=== PATIENT | female | born 1950 | race Caucasian/White ===

== ENCOUNTER 2022-06-01 00:27 | Inpatient (IN) | payer MEDICARE ==
[~2022-06-01] VITALS: Ht 152.4 cm; Wt 47.8 kg
[2022-06-01] MEDS ORDERED: normal saline 500ml IV soln 500 ML IV ONE (03:50)
--- NOTE | 2022-06-01 05:14 | NUR ---
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 aware.
[2022-06-01 05:20] LABS: ALANINE AMINOTRANSFERASE 12 U/L (12-78); ALBUMIN/GLOBULIN RATIO 0.8 (1.1-1.5); ALKALINE PHOSPHATASE 109 IU/L (46-116); ANION GAP 7 (8-16); ASPARTATE AMINO TRANSFERASE 27 U/L (10-37); BILIRUBIN,TOTAL 0.5 MG/DL (0.1-1.0); BLOOD UREA NITROGEN 22 MG/DL (7-18); BUN/CREATININE RATIO 16.9 (6.6-38.0); CHLORIDE 103 MMOL/L (99-107); GLUCOSE 126 MG/DL (70-104); POTASSIUM 3.9 MMOL/L (3.5-5.1); SODIUM 145 MMOL/L (135-145); TOTAL CARBON DIOXIDE 34.7 MMOL/L (24-32); TOTAL PROTEIN 6.9 G/DL (6.4-8.2); eGFR 40 ML/MIN
[2022-06-01 05:21] LABS: BASOPHILS % (AUTO) 0.5 % (0-1); EOSINOPHILS # (AUTO) 0.1 X10'3 (0-0.9); EOSINOPHILS % (AUTO) 4.4 % (0-6); HEMATOCRIT 38.4 % (35.0-45.0); LYMPHOCYTES # (AUTO) 0.6 X10'3 (1.1-4.8); LYMPHOCYTES % (AUTO) 19.2 % (21-51); MEAN CORPUSCULAR HEMOGLOBIN 33.5 PG (27.0-31.0); MEAN CORPUSCULAR HGB CONC 33.9 g/dL (33.0-36.5); MEAN CORPUSCULAR VOLUME 98.6 FL (78-98); MEAN PLATELET VOLUME 9.4 FL (7.4-10.4); MONOCYTES # (AUTO) 0.4 X10'3 (0-0.9); MONOCYTES % (AUTO) 11.8 % (2-12); NEUTROPHILS % (AUTO) 64.1 % (42-75); PLATELET COUNT 121 X10'3 (140-440); RED BLOOD COUNT 3.89 X10'6 (4.20-5.60); RED CELL DISTRIBUTION WIDTH 18.4 % (11.5-14.5); WHITE BLOOD COUNT 3.1 X10'3 (4.5-11.0)
[2022-06-01 05:28] LABS: MAGNESIUM 2.3 MG/DL (1.5-2.4)
[2022-06-01] MEDS ORDERED: potassium Cl 20 mEq SR tablet PEG PRN (08:05)
[2022-06-01] MEDS ORDERED: morphine 2 MG/ML inj. syringe IV PRN ×2 (08:05)
[2022-06-01] MEDS ORDERED: ondansetron 4mg rapidly disintigrating tab PEG PRN (08:05)
[2022-06-01] MEDS ORDERED: acetaminophen 325mg tablet PEG PRN ×2 (08:05)
[2022-06-01] MEDS ORDERED: albuterol 2.5 MG/3 ML nebule NEB PRN (08:05)
[2022-06-01] MEDS ORDERED: magnesium Cl slow-release 64mg tablet PO PRN (08:05)
[2022-06-01] MEDS ORDERED: potassium Cl 40MEQ/1/2NS 520ml 520 ML IV PRN (08:05)
[2022-06-01] MEDS ORDERED: mag hydrox/Alum hydrox/simeth 30ml oral suspension PEG PRN (08:05)
[2022-06-01] MEDS ORDERED: magnesium hydroxide 30ml (MOM) UD suspension PEG PRN (08:05)
[2022-06-01] MEDS ORDERED: acetaminophen 650mg rectal suppository RC PRN (08:05)
[2022-06-01] MEDS ORDERED: ondansetron/PF 4mg/2ml inj IV PRN (08:05)
[2022-06-01] MEDS ORDERED: magnesium 4gm in 100ml NS 100 ML IV PRN (08:05)
[2022-06-01 08:14] LABS: D-DIMER 4.73 MG/L FEU (0-0.50)
[2022-06-01 08:38] LABS: PHOSPHORUS 4.6 MG/DL (2.3-4.5); POTASSIUM 3.8 MMOL/L (3.5-5.1)
[2022-06-01 08:41] LABS: ABG BASE EXCESS 4.4 mmol/L (-2.0-2.0); ABG HCO3 29.2 mmol/L (22.0-26.0); ABG PCO2 (T) 43.9 mmHg (32.0-45.0); ABG PO2 (T) 85.1 mmHg (75.0-100.0); ALLEN'S TEST POSITIVE; FLOW 4 L/min
[2022-06-01] MEDS: normal saline 1000ml 1,000 ML IV SCH (09:01)
[2022-06-01] MEDS ORDERED: aspirin 81mg tab.chew PO ONE (14:55)
[2022-06-01] MEDS ORDERED: ipratropium/albuterol 3ml nebule NEB PRN (14:55)
[2022-06-01] MEDS ORDERED: CefTRIAXone/D5W-Rocephin 1gm 50 ML IV ONE (15:05)
[2022-06-01] MEDS: ipratropium/albuterol 3ml nebule NEB SCH ×3 (15:45→23:04)
[2022-06-01] MEDS: clopidogrel 75mg tablet PO SCH (16:09)
[2022-06-01] MEDS ORDERED: METO-384 PO (16:29)
[2022-06-01] MEDS ORDERED: LEVA15HF4 INH (16:29)
[2022-06-01] MEDS ORDERED: LORA-269 PO (16:29)
[2022-06-01] MEDS ORDERED: OLAN2.5T3 PO (16:29)
[2022-06-01] MEDS ORDERED: SERT-153 PO (16:29)
[2022-06-01] MEDS ORDERED: OXYC5TAB2 PO (16:29)
[2022-06-01] MEDS ORDERED: PANT-47 PO (16:29)
[2022-06-01] MEDS ORDERED: ASPI-1265 PO (16:29)
[2022-06-01] MEDS ORDERED: FURO-149 PO (16:29)
[2022-06-01] MEDS ORDERED: ATOR80TA13 PO (16:29)
[2022-06-01] MEDS ORDERED: CLOP-32 PO (16:29)
[2022-06-01] MEDS ORDERED: GABA800T PO (16:29)
[2022-06-01] MEDS ORDERED: OLAN5TAB75 PO (18:07)
[2022-06-01] MEDS ORDERED: GABA300C PO (18:07)
[2022-06-01] MEDS ORDERED: METO-395 PO (18:07)
[2022-06-01] MEDS ORDERED: LISI10TA27 PO (18:07)
--- NOTE | 2022-06-01 19:23 | NUR ---
CONACT: GRAZYNA SON
[2022-06-01] MEDS: docusate sod 100mg capsule PO SCH (22:22)
[2022-06-01] MEDS: K and/or MAG REPLACEMENT MC SCH (22:23)
[2022-06-01] MEDS: heparin, porcine 5000 units/ml vial SQ SCH (22:45)
[2022-06-02] MEDS ORDERED: oxyCODONE IR 5mg (immed. release) tablet PO PRN (00:25)
[2022-06-02] MEDS ORDERED: LORazepam 1 MG tablet PO PRN (00:25)
[2022-06-02] MEDS: normal saline 1000ml 1,000 ML IV SCH ×2 (01:26→17:41)
[2022-06-02] MEDS: ipratropium/albuterol 3ml nebule NEB SCH ×6 (03:59→23:00)
[2022-06-02 04:05] LABS: BASOPHILS % (AUTO) 0.4 % (0-1); EOSINOPHILS # (AUTO) 0.1 X10'3 (0-0.9); EOSINOPHILS % (AUTO) 3.5 % (0-6); HEMATOCRIT 26.7 % (35.0-45.0); LYMPHOCYTES # (AUTO) 0.5 X10'3 (1.1-4.8); LYMPHOCYTES % (AUTO) 16.5 % (21-51); MEAN CORPUSCULAR HEMOGLOBIN 33.7 PG (27.0-31.0); MEAN CORPUSCULAR HGB CONC 33.5 g/dL (33.0-36.5); MEAN CORPUSCULAR VOLUME 100.4 FL (78-98); MEAN PLATELET VOLUME 9.7 FL (7.4-10.4); MONOCYTES # (AUTO) 0.4 X10'3 (0-0.9); MONOCYTES % (AUTO) 12.5 % (2-12); NEUTROPHILS # (AUTO) 2.1 X10'3 (1.8-7.7); NEUTROPHILS % (AUTO) 67.1 % (42-75); PLATELET COUNT 132 X10'3 (140-440); RED BLOOD COUNT 2.66 X10'6 (4.20-5.60); WHITE BLOOD COUNT 3.2 X10'3 (4.5-11.0)
[2022-06-02 04:15] LABS: ALANINE AMINOTRANSFERASE 12 U/L (12-78); ALBUMIN 2.6 G/DL (3.4-5.0); ALBUMIN/GLOBULIN RATIO 0.7 (1.1-1.5); ALKALINE PHOSPHATASE 104 IU/L (46-116); ANION GAP 9 (8-16); ASPARTATE AMINO TRANSFERASE 35 U/L (10-37); BILIRUBIN,TOTAL 0.3 MG/DL (0.1-1.0); BLOOD UREA NITROGEN 19 MG/DL (7-18); BUN/CREATININE RATIO 17.9 (6.6-38.0); CALCIUM 8.5 MG/DL (8.5-10.1); CHLORIDE 106 MMOL/L (99-107); CREATININE 1.06 MG/DL (0.40-0.90); GLUCOSE 113 MG/DL (70-104); PHOSPHORUS 4.5 MG/DL (2.3-4.5); POTASSIUM 3.4 MMOL/L (3.5-5.1); SODIUM 144 MMOL/L (135-145); TOTAL CARBON DIOXIDE 29.4 MMOL/L (24-32); TOTAL PROTEIN 6.1 G/DL (6.4-8.2); eGFR 51 ML/MIN
--- NOTE | 2022-06-02 07:13 | NUR ---
Patient in room ED 9. I have received report from Mina in the ED and had the opportunity to ask questions and assume patient care.
[2022-06-02 08:00] VITALS: BP 114/59
[2022-06-02] MEDS ORDERED: aspirin 81mg tab.chew PO SCH (08:00)
[2022-06-02] MEDS: docusate sod 100mg capsule PO SCH (08:00)
[2022-06-02] MEDS: heparin, porcine 5000 units/ml vial SQ SCH ×2 (08:00→20:00)
[2022-06-02] MEDS ORDERED: gabapentin 300mg capsule PO SCH ×2 (08:00→21:00)
[2022-06-02] MEDS ORDERED: clopidogrel 75mg tablet PO SCH (08:00)
[2022-06-02] MEDS: K and/or MAG REPLACEMENT MC SCH ×2 (08:00→19:18)
[2022-06-02] MEDS: aspirin 81mg tab.chew PO SCH (08:53)
[2022-06-02] MEDS: atorvastatin 20mg tablet PO SCH (08:54)
[2022-06-02] MEDS: clopidogrel 75mg tablet PO SCH (08:56)
[2022-06-02] MEDS: metoprolol succinate 25mg (24-HOUR) SR. Tablet PO SCH (08:56)
[2022-06-02] MEDS: pantoprazole 40mg Tablet.DR PO SCH (08:56)
[2022-06-02] MEDS: lisinopril 10 MG tablet PO SCH ×2 (08:57→20:29)
[2022-06-02] MEDS: sertraline 50mg tablet PO SCH (08:57)
[2022-06-02] MEDS: potassium Cl 20 mEq SR tablet PEG PRN ×3 (08:58→20:29)
--- NOTE | 2022-06-02 09:46 | NUR ---
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 Discussed w/ pt and her at bedside. Pt states she takes 1-2 bottles of [employer] Standard 1.4 formula per day in addition to any food she eats. 1 11oz bottle contains 455kcals and 20g protein. FOOD GENERAL MANAGER saw pt today and recommended Regular diet. Pt has her own TF at bedside and says she has plenty to bring from home. Recommend continue current home TF regimen and regular diet. Will continue to monitor. Recommendations: 1. Continue Regular diet per FOOD GENERAL MANAGER recs 2. Continue Home TF regimen: Remicalm 1.4 1-2 11oz bottles per day 3. Bowel care per rx 4. Scaled wts Addendum: 06/02/22 at [address] Amended: Links added.
--- NOTE | 2022-06-02 13:21 | NUR ---
PAGER ID: [phone] MESSAGE: RE: Adebayo in [id number], pt states she takes gabapentin 300 mg TID, ordered is 900 mg TID, please advise Yuliana
[2022-06-02 14:00] VITALS: BP 110/61
[2022-06-02] MEDS: CefTRIAXone/D5W-Rocephin 1gm 50 ML IV SCH (15:21)
[2022-06-02] MEDS ORDERED: azithromycin 250mg tablet PO ONE (16:50)
[2022-06-02 18:00] VITALS: BP 103/48
--- NOTE | 2022-06-02 18:18 | NUR ---
Problems reprioritized. Patient report given, questions answered & plan of care reviewed with Cheryl Ortega
[2022-06-02] MEDS: gabapentin 300mg capsule PO SCH (20:29)
[2022-06-02] MEDS: OLANZAPINE 5 MG TABLET PO SCH (20:30)
[2022-06-02 22:00] VITALS: BP 87/39
[2022-06-03 02:00] VITALS: BP 125/65
[2022-06-03] MEDS: ipratropium/albuterol 3ml nebule NEB SCH ×6 (03:00→23:00)
[2022-06-03 06:30] VITALS: BP 133/71
--- NOTE | 2022-06-03 07:06 | NUR ---
Patient in room PCU 3024. I have received report from Cheryl Padilla and had the opportunity to ask questions and assume patient care.
[2022-06-03 07:36] LABS: HEMATOCRIT 28.3 % (35.0-45.0); HEMOGLOBIN 9.4 g/dl (12.0-16.0); MEAN CORPUSCULAR HEMOGLOBIN 33.2 PG (27.0-31.0); MEAN CORPUSCULAR HGB CONC 33.3 g/dL (33.0-36.5); MEAN CORPUSCULAR VOLUME 99.8 FL (78-98); RED BLOOD COUNT 2.84 X10'6 (4.20-5.60); RED CELL DISTRIBUTION WIDTH 18.6 % (11.5-14.5); WHITE BLOOD COUNT 3.8 X10'3 (4.5-11.0)
[2022-06-03 07:37] LABS: EOSINOPHILS # (AUTO) 0.2 X10'3 (0-0.9); EOSINOPHILS % (AUTO) 5.8 % (0-6); LYMPHOCYTES % (AUTO) 11.8 % (21-51); MEAN PLATELET VOLUME 9.6 FL (7.4-10.4); MONOCYTES # (AUTO) 0.4 X10'3 (0-0.9); MONOCYTES % (AUTO) 9.4 % (2-12); NEUTROPHILS # (AUTO) 2.7 X10'3 (1.8-7.7); NEUTROPHILS % (AUTO) 72.6 % (42-75); PLATELET COUNT 135 X10'3 (140-440)
[2022-06-03 07:39] LABS: ANION GAP 6 (8-16); BLOOD UREA NITROGEN 14 MG/DL (7-18); BUN/CREATININE RATIO 15.2 (6.6-38.0); CALCIUM 8.5 MG/DL (8.5-10.1); CHLORIDE 110 MMOL/L (99-107); CREATININE 0.92 MG/DL (0.40-0.90); GLUCOSE 91 MG/DL (70-104); POTASSIUM 4.6 MMOL/L (3.5-5.1); SODIUM 145 MMOL/L (135-145); TOTAL CARBON DIOXIDE 28.6 MMOL/L (24-32); eGFR 60 ML/MIN
[2022-06-03 07:40] LABS: ALANINE AMINOTRANSFERASE 19 U/L (12-78); ALBUMIN 2.7 G/DL (3.4-5.0); ALBUMIN/GLOBULIN RATIO 0.8 (1.1-1.5); ALKALINE PHOSPHATASE 99 IU/L (46-116); ASPARTATE AMINO TRANSFERASE 45 U/L (10-37); BILIRUBIN,TOTAL 0.3 MG/DL (0.1-1.0); PHOSPHORUS 3.8 MG/DL (2.3-4.5); TOTAL PROTEIN 6.2 G/DL (6.4-8.2)
[2022-06-03] MEDS: K and/or MAG REPLACEMENT MC SCH ×2 (08:00→20:00)
[2022-06-03] MEDS: atorvastatin 20mg tablet PO SCH (08:00)
[2022-06-03] MEDS: heparin, porcine 5000 units/ml vial SQ SCH ×2 (08:00→19:06)
[2022-06-03] MEDS: gabapentin 300mg capsule PO SCH ×2 (08:57→19:08)
[2022-06-03] MEDS: pantoprazole 40mg Tablet.DR PO SCH (08:57)
[2022-06-03] MEDS: metoprolol succinate 25mg (24-HOUR) SR. Tablet PO SCH (08:57)
[2022-06-03] MEDS: clopidogrel 75mg tablet PO SCH (08:57)
[2022-06-03] MEDS: azithromycin 250mg tablet PO SCH (08:58)
[2022-06-03] MEDS: aspirin 81mg tab.chew PO SCH (08:58)
[2022-06-03] MEDS: lisinopril 10 MG tablet PO SCH ×2 (08:58→19:08)
[2022-06-03] MEDS: sertraline 50mg tablet PO SCH (08:58)
[2022-06-03 10:00] VITALS: BP 126/60
[2022-06-03] MEDS: normal saline 1000ml 1,000 ML IV SCH (10:05)
[2022-06-03 10:41] LABS: BASOPHILS % (AUTO) 0.5 % (0-1)
[2022-06-03] MEDS: CefTRIAXone/D5W-Rocephin 1gm 50 ML IV SCH (15:34)
--- NOTE | 2022-06-03 18:30 | NUR ---
Problems reprioritized. Patient report given, questions answered & plan of care reviewed with Sam Day
[2022-06-03] MEDS: OLANZAPINE 5 MG TABLET PO SCH (20:01)
[2022-06-04 00:15] VITALS: BP 131/69
[2022-06-04] MEDS: ipratropium/albuterol 3ml nebule NEB SCH ×4 (02:25→15:00)
[2022-06-04] MEDS: normal saline 1000ml 1,000 ML IV SCH (02:45)
[2022-06-04 02:51] VITALS: BP 139/67
[2022-06-04 06:30] VITALS: BP 140/74
[2022-06-04 06:31] LABS: BASOPHILS % (AUTO) 0.4 % (0-1); EOSINOPHILS # (AUTO) 0.2 X10'3 (0-0.9); EOSINOPHILS % (AUTO) 5.4 % (0-6); HEMATOCRIT 27.4 % (35.0-45.0); HEMOGLOBIN 9.1 g/dl (12.0-16.0); LYMPHOCYTES # (AUTO) 0.5 X10'3 (1.1-4.8); LYMPHOCYTES % (AUTO) 11.1 % (21-51); MEAN CORPUSCULAR HEMOGLOBIN 33.8 PG (27.0-31.0); MEAN CORPUSCULAR HGB CONC 33.3 g/dL (33.0-36.5); MEAN CORPUSCULAR VOLUME 101.4 FL (78-98); MEAN PLATELET VOLUME 9.5 FL (7.4-10.4); MONOCYTES # (AUTO) 0.4 X10'3 (0-0.9); MONOCYTES % (AUTO) 9.5 % (2-12); NEUTROPHILS % (AUTO) 73.6 % (42-75); PLATELET COUNT 127 X10'3 (140-440); RED CELL DISTRIBUTION WIDTH 18.5 % (11.5-14.5); WHITE BLOOD COUNT 4.1 X10'3 (4.5-11.0)
[2022-06-04 06:37] LABS: ALANINE AMINOTRANSFERASE 26 U/L (12-78); ALBUMIN 2.7 G/DL (3.4-5.0); ALBUMIN/GLOBULIN RATIO 0.8 (1.1-1.5); ALKALINE PHOSPHATASE 99 IU/L (46-116); ANION GAP 9 (8-16); ASPARTATE AMINO TRANSFERASE 68 U/L (10-37); BILIRUBIN,TOTAL 0.3 MG/DL (0.1-1.0); BLOOD UREA NITROGEN 12 MG/DL (7-18); BUN/CREATININE RATIO 14.5 (6.6-38.0); CALCIUM 8.6 MG/DL (8.5-10.1); CHLORIDE 107 MMOL/L (99-107); CREATININE 0.83 MG/DL (0.40-0.90); GLUCOSE 85 MG/DL (70-104); PHOSPHORUS 3.9 MG/DL (2.3-4.5); POTASSIUM 3.9 MMOL/L (3.5-5.1); SODIUM 141 MMOL/L (135-145); TOTAL PROTEIN 6.1 G/DL (6.4-8.2); eGFR 68 ML/MIN
[2022-06-04] MEDS: K and/or MAG REPLACEMENT MC SCH (08:00)
[2022-06-04] MEDS: heparin, porcine 5000 units/ml vial SQ SCH (08:00)
[2022-06-04] MEDS: aspirin 81mg tab.chew PO SCH (08:33)
[2022-06-04] MEDS: clopidogrel 75mg tablet PO SCH (08:33)
[2022-06-04] MEDS: sertraline 50mg tablet PO SCH (08:33)
[2022-06-04] MEDS: gabapentin 300mg capsule PO SCH (08:33)
[2022-06-04] MEDS: atorvastatin 20mg tablet PO SCH (08:34)
[2022-06-04] MEDS: azithromycin 250mg tablet PO SCH (08:36)
[2022-06-04] MEDS: metoprolol succinate 25mg (24-HOUR) SR. Tablet PO SCH (08:36)
[2022-06-04] MEDS: pantoprazole 40mg Tablet.DR PO SCH (08:36)
[2022-06-04] MEDS: lisinopril 10 MG tablet PO SCH (08:37)
--- NOTE | 2022-06-04 10:36 | NUR ---
Patient in room PCU 3024. I have received report from Una and had the opportunity to ask questions and assume patient care.
[2022-06-04] MEDS ORDERED: AZI25OT PO (10:58)
[2022-06-04] MEDS ORDERED: CEFD300C3 PO (10:58)
[2022-06-04 11:13] VITALS: BP 142/72
[2022-06-04 14:00] VITALS: BP 152/88
[2022-06-04] MEDS: CefTRIAXone/D5W-Rocephin 1gm 50 ML IV SCH (15:00)
--- NOTE | 2022-06-04 15:30 | NUR ---
Problems reprioritized. Patient report given, questions answered & plan of care reviewed with Olya at [facility].
--- NOTE | 2022-06-04 16:32 | NUR ---
Patient is alert, oriented and expresses a readiness to DC to rehab care. Patient's belongings were gathered, she was seated in a wheelchair and taken downstairs by [facility] personnel. Patient's spouse is aware.
--- NOTE | 2022-06-24 14:34 | NUR ---
Case Management DC follow up: Patient DC to [facility].
== END 2022-06-04 16:20 | DRG 177 ==
LOC: ER 00:28 → ED HOLD 08:13 → EDBEDREQ 21:17 → PCU 3S 06-02 07:33
PROVIDERS: ADMIT Family Medicine; ATTEND Family Medicine
DX: J69.0 Pneumonitis due to inhalation of food and vomit (principal); G93.41 Metabolic encephalopathy; J96.01 Acute respiratory failure with hypoxia; Z20.822 Contact with and (suspected) exposure to COVID-19; I10 Essential (primary) hypertension; E78.5 Hyperlipidemia, unspecified; E78.00 Pure hypercholesterolemia, unspecified; F32.9 Major depressive disorder, single episode, unspecified; I25.10 Atherosclerotic heart disease of native coronary artery without angina pectoris; J43.9 Emphysema, unspecified; Z87.891 Personal history of nicotine dependence; Z95.5 Presence of coronary angioplasty implant and graft; Z85.828 Personal history of other malignant neoplasm of skin; Z79.02 Long term (current) use of antithrombotics/antiplatelets; Z79.82 Long term (current) use of aspirin
CPT/HCPCS: 36415; 36600; 70450; 71045; 71250; 80053; 82140; 82803; 83605; 83735; 83880; 84100; 84132; 84145; 84443; 84484; 85025; 85379; 87040; 87081; 87811; 92508; 92616; 93005; 93306; 94640; 94760; 96360; 97116; 97161; 97530; 99285; A4615; G0378; J0696; J7030; J7040